=== PATIENT | female | born 1975 | race Caucasian/White ===

== ENCOUNTER 2025-06-24 15:07 | Inpatient (IN) | payer MEDICAID, OTHER ==
[~2025-06-24] VITALS: Ht 165.1 cm; Wt 180.0 kg
[2025-06-24] MEDS: LORazepam 2 MG/ML VIAL IM ONE (15:44)
[2025-06-24 16:28] LABS: COVID AG,FIA SOURCE NASAL SWAB
[2025-06-24 16:46] LABS: PLATELET COUNT (AUTO) 297 K/uL (150-450); RED BLOOD CELL COUNT(AUTO) 4.36 MIL/uL (4.00-5.20); RED CELL DISTRIBUTION WIDTH 14.3 % (11.5-14.5); WHITE BLOOD COUNT (AUTO) 7.2 K/uL (4.5-11.0)
[2025-06-24 16:54] LABS: SARS-COV2 (COVID) ANTIGEN,FIA Negative (Negative)
[2025-06-24 16:56] LABS: CALCIUM, TOTAL 9.3 mg/dL (8.8-10.5); CREATININE 0.85 mg/dL (0.60-1.30); GLOMERULAR FILTR. RATE CALC > 60 mL/min (>60); GLUCOSE,RANDOM 96 mg/dL (70-110); SODIUM SERUM 143 mmol/L (136-145); UREA NITROGEN, BLOOD 27 mg/dL (7-18)
[2025-06-24] MEDS ORDERED: ZOLPIDEM TARTRATE 10 MG TABLET PO PRN (19:45)
[2025-06-25 03:28] VITALS: BP 122/80; PULSE 70; RESP 18; TEMP 97.7; O2SAT 100
[2025-06-25] MEDS ORDERED: DOCUSATE SODIUM 100 MG CAPSULE PO PRN (06:30)
[2025-06-25] MEDS ORDERED: GuaiFENesin/D-METHORPHAN [SUGAR-FREE] 200-20MG/10 ML SYRUP UDCUP PO PRN (06:30)
[2025-06-25] MEDS ORDERED: LOPERAMIDE HCL 2 MG CAPSULE PO PRN (06:30)
[2025-06-25] MEDS ORDERED: PETROLATUM,WHITE 28 GM JELLY TP PRN (06:30)
[2025-06-25] MEDS ORDERED: MAGNESIUM HYDROXIDE SUSPENSION 30 ML UDCUP PO PRN (06:30)
[2025-06-25] MEDS ORDERED: MAG HYDROX/ALUMINUM HYD/SIMETH ES 30 ML SUSPENSION UDCUP PO PRN (06:30)
[2025-06-25] MEDS ORDERED: ONDANSETRON 4 MG TABLET PO PRN (06:30)
[2025-06-25] MEDS ORDERED: ALBUTEROL SULFATE HFA 90 MCG/PUFF 8 GM INHALER IH PRN (06:30)
[2025-06-25 08:28] VITALS: RESP 16
[2025-06-25 23:58] VITALS: BP 114/77; PULSE 85; RESP 16; TEMP 98.4; O2SAT 99
[2025-06-26 11:10] VITALS: RESP 18
[2025-06-26] MEDS: LURASIDONE HCL 40 MG TABLET PO SCH (18:42)
[2025-06-26 20:29] VITALS: BP 120/88; PULSE 70; RESP 17; TEMP 97.8; O2SAT 98
[2025-06-27 04:53] VITALS: RESP 18
[2025-06-27 08:33] VITALS: BP 130/100; PULSE 72; RESP 16; TEMP 98; O2SAT 99
[2025-06-27] MEDS: BACITRACIN 28 GM OINTMENT TP SCH (11:03)
[2025-06-27] MEDS: CADEXOMER IODINE 0.9% 40 GM GEL TP SCH (11:30)
[2025-06-27 20:25] VITALS: BP 144/98; PULSE 66; RESP 17; TEMP 97.7; O2SAT 100
[2025-06-28 08:17] VITALS: BP 140/81; PULSE 71; RESP 17; TEMP 98; O2SAT 99
[2025-06-28 08:20] LABS: APPEARANCE,URINE CLEAR (CLEAR); GLUCOSE, URINE (UA) NEGATIVE (NEGATIVE); LEUKOCYTE ESTERASE ,URINE NEGATIVE (NEGATIVE); NITRATE,URINE NEGATIVE (NEGATIVE); OCCULT BLOOD,URINE NEGATIVE (NEGATIVE); PH,URINE DRUG SCREEN 5.5 (5.0-8.0); SPECIFIC GRAVITIY, URINE 1.011 (1.003-1.030)
[2025-06-28 08:27] LABS: ALCOHOL, URINE DRUG SCREEN NEGATIVE (NEGATIVE); AMPHET/METH SCREEN,URINE NEGATIVE (NEGATIVE); BARBITURATE SCREEN, URINE NEGATIVE (NEGATIVE); CANNABINOID SCREEN,URINE NEGATIVE (NEGATIVE); COCAINE SCREEN,URINE NEGATIVE (NEGATIVE); METHADONE SCREEN, URINE NEGATIVE (NEGATIVE)
[2025-06-28 16:20] VITALS: RESP 17
[2025-06-28] MEDS: ACETAMINOPHEN 325 MG TABLET PO PRN (16:20)
[2025-06-28 17:20] VITALS: RESP 17
[2025-06-28 20:42] VITALS: RESP 17
[2025-06-29 08:15] VITALS: BP 126/88; PULSE 65; RESP 16; TEMP 98; O2SAT 99
[2025-06-29] MEDS: BACITRACIN 28 GM OINTMENT TP SCH (16:04)
[2025-06-29] MEDS: SULFAMETHOX/TRIMETH DS 800-160 MG/TABLET PO SCH (16:04)
[2025-06-29] MEDS ORDERED: BACITRACIN 28 GM OINTMENT TP SCH (17:00)
[2025-06-29 22:48] VITALS: RESP 18
[2025-06-29] MEDS: IBUPROFEN 400 MG TABLET PO PRN (22:48)
[2025-06-30] VITALS (8 sets, daily range): BP systolic 125–128; BP diastolic 84–90; PULSE 65–68; RESP 17–18; TEMP 97.5–97.8; O2SAT 100
[2025-06-30] MEDS: NICOTINE 14 MG/24 HOUR PATCH TD PRN (10:04)
[2025-07-01] VITALS (7 sets, daily range): BP systolic 118; BP diastolic 79; PULSE 87; RESP 16–18; TEMP 97; O2SAT 99
[2025-07-01 08:54] LABS: CHOL/HDL RATIO 2.6 (3.9-5.7); LDL CHOL (CALC.) 69.0 mg/dL (0-130)
[2025-07-01] MEDS ORDERED: SULF-261 PO (16:40)
[2025-07-01] MEDS ORDERED: LURA40TA2 PO (16:40)
== END 2025-07-01 17:00 | disposition home or self-care (01) | DRG 753 ==
LOC: EMS 15:08 → B3A 22:58
PROVIDERS: ADMIT Psychiatry & Neurology Child & Adolescent Psychiatry; ATTEND Psychiatry & Neurology Child & Adolescent Psychiatry
PROC: GZ56ZZZ Individual Psychotherapy, Supportive (ICD-10-PCS; 2025-06-25)
PROC: GZ58ZZZ Individual Psychotherapy, Cognitive-Behavioral (ICD-10-PCS; 2025-06-25)
PROC: GZ52ZZZ Individual Psychotherapy, Cognitive (ICD-10-PCS; 2025-06-26)
PROC: GZHZZZZ Group Psychotherapy (ICD-10-PCS; principal; 2025-06-27)
DX: F31.2 Bipolar disorder, current episode manic severe with psychotic features (principal); S71.109A Unspecified open wound, unspecified thigh, initial encounter; Z20.822 Contact with and (suspected) exposure to COVID-19; M79.622 Pain in left upper arm; I10 Essential (primary) hypertension; F41.9 Anxiety disorder, unspecified; X58.XXXA Exposure to other specified factors, initial encounter; Y93.89 Activity, other specified; Z78.1 Physical restraint status
CPT/HCPCS: 80048; 80061; 80307; 81003; 83036; 84703; 85025; 96372; 99291; G0480; J1200; J1630; J2060